=== PATIENT | male | born 1945 | race Caucasian/White ===

== ENCOUNTER → 2019-12-08 11:58 | Outpatient (BNVA) | payer MEDICARE, SELFPAY | PROVIDERS: PCP Family Medicine; Visit Provider Urology | DX: N40.1 Benign prostatic hyperplasia with lower urinary tract symptoms (principal); R33.9 Retention of urine, unspecified; R82.71 Bacteriuria; R33.8 Other retention of urine | CPT/HCPCS: 80053; 81001; 87077; 87086; 87186 ==

== ENCOUNTER → 2020-02-14 10:46 | Outpatient (BNVA) | payer MEDICARE, SELFPAY | PROVIDERS: PCP Family Medicine; Visit Provider Podiatrist Foot & Ankle Surgery | DX: S99.929A Unspecified injury of unspecified foot, initial encounter (principal); X58.XXXA Exposure to other specified factors, initial encounter; M79.671 Pain in right foot; G57.61 Lesion of plantar nerve, right lower limb | CPT/HCPCS: 73630 ==

== ENCOUNTER 2020-02-23 06:41 | Day surgery (SDC) | payer MEDICARE, SELFPAY ==
[2020-02-21 10:25] VITALS: BMI 23.0
[2020-02-23 07:11] VITALS: BP 142/72; PULSE 60; RESP 20; TEMP 37.2; O2SAT 98
[2020-02-23] MEDS: sodium chloride 0.9% 1,000 ML 30 ML IV (07:40)
--- NOTE | 2020-02-23 07:40 | ANES.PREANE2 ---
Pre-Anesthetic Assessment Pre-Anesthetic Assessment: Height/Weight: Height 1.8 m Weight 74.843 kg Temp Pulse Resp BP Pulse Ox 99 F 60 20 H 142/72 98 02/23/20 07:11 02/23/20 07:11 02/23/20 07:11 02/23/20 07:11 02/23/20 07:11 Preop Diagnosis: Bleeding per rectum Proposed Procedure: Operation Date: 02/23/20 08:00 Proposed Procedures p Colonoscopy 77329 K62.5(Not Applicable) - Donaldo Winters MD Familial anesthetic complications: None Last intake: Intake Last Liquid Date 02/22/20 Last Liquid Time 20:00 Last Solid Date 02/22/20 Last Solid Time 12:00 Social: Social History: No alcohol and No tobacco Exam: Pre-Anes Outpt Exam: alert, oriented x 3, clear to auscultation bilaterally and regular rate & rhythm Airway: Cervical ROM: WNL MP: 3 Dentition: False Pulmonary: Pulmonary: None reported CV/HEM: CV/HEM: Arrythmia Comments: Holter monitor shows NSR, sinus sandra, idoventricular rhythm, and 1 9 beat run of V TACH Patient states he can climb up steep hills ok with out SOB, he can climb stairs, walks a lot and does some light weight lifting No chest pains GI: GI: GERD Anesthetic Plan: ASA status: 2 Anesthesia: MAC Risk of > 500 ml blood loss (7ml/kg in children): No PFSH Anesthesia PFSH: Medical History Benign prostatic hyperplasia with urinary retention Hard of hearing Paraphimosis Surgical History Hx of facial fracture repair Hx of hernia repair Family History Father Cancer Mother Cancer Social History Smoking and tobacco status: former smoker Alcohol intake: never Adopted: No Caregiver/support person: No Lives independently: No Household members: spouse Marital status: Current occupational status: retired History of recent travel: No Data Anesthesia Cardiac Studies: Holter Monitor 02/17/20
--- NOTE | 2020-02-23 08:19 | W.PM.OPSFHP ---
Same Day Surgery H&P Indication for Procedure/HPI DATE OF PROCEDURE: February 23, 2020 CHIEF COMPLAINT/INDICATIONFOR SURGICAL PROCEDURE: Blood in stool PREOP DIAGNOSIS: Bleeding per rectum PLANNED PROCEDRUE: Operation Date: 02/23/20 08:00 Proposed Procedures p Colonoscopy 37463 K62.5(Not Applicable) - Donaldo Winters MD This is a pleasant 74 years old gentleman presents to my office with history of blood in stool when he wipes after a bowel movement, he denies any weight loss or colon cancer history yet he does report that he never had a colonoscopy before. Patient was recently diagnosed with UTI and has been on antibiotics and now he is recovering from that. Interim history 02/23/2020 Patient comes today had colon prep for colonoscopy due to history of blood in stool when he wipes it has been persistent. ROS All systems have been reviewed negative except as for the above or per problem list Medications/Allergies* Home Medications Medication Instructions Recorded Confirmed Type aspirin 81 mg tablet,delayed 81 mg PO DAILY 12/08/19 02/23/20 History release Allergies/Adverse Reactions Allergy/AdvReac Type Severity Reaction Status Date / Time cortisone Allergy Unknown Unknown Verified 02/23/20 08:19 Current Medications: Generic Name Dose Route Start Last Admin Trade Name Freq PRN Reason Stop Dose Admin Sodium Chloride 1,000 mls @ 30 mls/hr 02/23/20 07:15 02/23/20 07:40 Sodium Chloride 0.9% IV 30 mls/hr .Q24H JAMES Administration Pertinent History/Comorbid Conditions* Medical History (Updated 01/17/20 @ 13:53 by Donaldo Winters MD) Benign prostatic hyperplasia with urinary retention Hard of hearing Paraphimosis Surgical History (Updated 12/08/19 @ 08:51 by Levi Cheung MD) Hx of facial fracture repair Hx of hernia repair Family History (Updated 12/08/19 @ 08:07 by ASHLEY Sarmiento) Cancer Father Mother Social History Smoking and tobacco status: former smoker Alcohol intake: never Adopted: No Caregiver/support person: No Lives independently: No Household members: spouse Marital status: Current occupational status: retired History of recent travel: No Pertinent Exam Findings alert, oriented x 3, clear to auscultation bilaterally, regular rate & rhythm and procedure specific exam findings (Abdominal examination nontender soft nondistended) Recommendations Surgery/Procedure today (Colonoscopy and informed consent per chart) Coding Level of Care Code Acute Service Delivery Consultant for Kait Dorado
[2020-02-23 08:46] VITALS: BP 91/54; PULSE 52; RESP 18; TEMP 36.3; O2SAT 100
[2020-02-23 08:59] VITALS: BP 115/58; PULSE 43; RESP 18; O2SAT 100
--- NOTE | 2020-02-23 09:47 | ANE.PACU2 ---
Inpatient post-anesthesia follow up: Airway intact: Yes Vital signs: Temperature 97.4 F Pulse Rate 43 Respiratory Rate 18 Blood Pressure 115/58 Pulse Oximetry 100 Oxygen Delivery Me thod Nasal Cannula Oxygen Flow Rate 6 Fraction of Inspir ed Oxygen Hydration adequate: Yes Nausea and vomiting: No Pain level: 1 Mental status: Baseline
== END 2020-02-23 09:25 | disposition home or self-care (01) ==
PROVIDERS: PCP Nurse Practitioner Family; Visit Provider Surgery
PROC: 0DJD8ZZ Inspection of Lower Intestinal Tract, Via Natural or Artificial Opening Endoscopic (ICD-10-PCS; CPT 45378; principal; 2020-02-23 08:00)
DX: K63.89 Other specified diseases of intestine (principal); N40.1 Benign prostatic hyperplasia with lower urinary tract symptoms; R33.8 Other retention of urine; K21.9 Gastro-esophageal reflux disease without esophagitis; Z87.891 Personal history of nicotine dependence
CPT/HCPCS: 12345; 45378; J2704; J7030

== ENCOUNTER 2020-03-15 10:03 | Outpatient (CLI) | payer MEDICARE, SELFPAY ==
--- NOTE | 2020-03-15 10:54 | ECG_ITS ---
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 Interpretive Statements NAME OF STUDY: EXERCISE SESTAMIBI STRESS TEST INDICATION: Chest Pain, EXERCISE DATA: The patient was exercised by Yefri protocol. Baseline heart rate was 48 beats per minute. Baseline blood pressure was 108/55 millimeters of mercury. Target heart rate was 147 beats per minute. Maximum heart rate achieved was 135, which was 91% of the target heart rate. Maximum blood pressure was 197/96 millimeters of mercury. Total exercise time was 6 minutes 3-seconds. Maximum METs achieved was 7.0, maximum VO2 was 24 1. The reason for ending the test was maximum effort achieved. The patient complained of shortness of breath during the stress test, which then resolved at the end of the test. ELECTROCARDIOGRAM: BASELINE: Showed sinus rhythm, normal axis, no significant ST-T changes at the baseline noted. EXERCISE: At the peak exercise level, multiple PVCs noted, no significant ST-T changes suggestive of ischemia noted. RECOVERY: During the recovery period, heart rate dropped appropriately. No significant ST-T changes in the recovery suggestive of ischemia noted. CONCLUSION: 1. Exercise capacity fair. 2. Heart rate response was appropriate. 3. Blood pressure response was hypertensive. 4. Symptoms not suggestive of ischemia. 5. Electrocardiogram portion of the stress test was not suggestive of ischemia. 6. Nuclear scan will be documented separately. Please note that due to underachievement of METs and low exercise capacity specificity and sensitivity of EKG portion of the stress test will be low Electronically Signed On 03-16-2020 18:22:26 CDT by Kellen Dickinson M.D. [id number]
--- NOTE | 2020-03-15 10:55 | NMCV_ITS ---
NM nasima perf SPECT r/s* [id number] Anup Gilman Age: 74 Gender: M : 1945 Exam Date: 03/15/2020 10:55 Ordering Phys: Kellen Dickinson MD ([email or web address]) Technologist: LUIS Ibanez Exam Location: [facility] Indications: Chest pain STRESS TEST Please see separate stress test report in [facility] for full findings IMAGE PROTOCOL Rest/Stress 1 Exercise Day Radiopharmaceutical Dose (mCi) Administration Site Administered by Rest: Tc-99m 11.0 IV LUIS Talbert Sestamibi Stress:Tc-99m 32.5 IV LUIS Ibanez Sestamisarah Rest: 15-Mar-2020 60 Discovery 630 Stress: 15-Mar-2020 30 Discovery 630 Radiopharmaceutical was injected at 85 % maximum heart rate. Images obtained in supine and prone position. SPECT RESULTS Technical Quality: Good Raw Data Analysis: Normal Image Corrections: No attenuation or motion correction applied Summed Stress Score: 1 Summed Rest Score: 4 Summed Difference Score: 0 PERFUSION FINDINGS Medium-sized area of decreased tracer uptake noted in basal to distal inferior and inferoseptal wall on rest images which improved significantly over stress images suggestive of artifact. FUNCTIONAL RESULTS (calculated via Gated SPECT) Stress Image LV EF (%): 61 Stress EDV (mL):109 TID: 1.07 Stress ESV (mL):42 FUNCTIONAL FINDINGS: There is normal left ventricular systolic function. IMPRESSIONS Myocardial perfusion imaging is normal and low probability for obstructive coronary artery disease. EKG segment will be documented separately. Kellen Dickinson MD (Electronically Signed) Final Date: 15 March 2020 17:43 S
[2020-03-15 10:56] VITALS: BMI 22.4
[2020-03-15 13:29] VITALS: BP 136/81; PULSE 64
== END 2020-03-15 10:04 | disposition home or self-care (01) ==
LOC: CDL 10:08
PROVIDERS: PCP Nurse Practitioner Family; Visit Provider Internal Medicine Cardiovascular Disease
DX: R07.9 Chest pain, unspecified (principal)
CPT/HCPCS: 78452; 93017; A9500

== ENCOUNTER → 2020-04-06 13:44 | Outpatient (BNVA) | payer MEDICARE, SELFPAY | PROVIDERS: PCP Nurse Practitioner Family; Referring Provider Nurse Practitioner Family; Visit Provider Nurse Practitioner Family | DX: N40.1 Benign prostatic hyperplasia with lower urinary tract symptoms (principal); R33.8 Other retention of urine; N39.0 Urinary tract infection, site not specified | CPT/HCPCS: 80053; 81001; 87077; 87086; 87186 ==

== ENCOUNTER → 2020-07-12 13:31 | Outpatient (BNVA) | payer MEDICARE, SELFPAY | PROVIDERS: PCP Nurse Practitioner Family; Visit Provider Urology | DX: N39.0 Urinary tract infection, site not specified (principal); N40.1 Benign prostatic hyperplasia with lower urinary tract symptoms; R33.8 Other retention of urine; Z20.822 Contact with and (suspected) exposure to COVID-19 | CPT/HCPCS: 81003; 87077; 87086; 87184; 87635 ==

== ENCOUNTER → 2020-07-18 11:43 | Outpatient (BNVA) | payer MEDICARE, SELFPAY | PROVIDERS: PCP Nurse Practitioner Family; Visit Provider Urology | DX: Z01.812 Encounter for preprocedural laboratory examination (principal); N40.1 Benign prostatic hyperplasia with lower urinary tract symptoms | CPT/HCPCS: 87635 ==

== ENCOUNTER 2020-07-20 16:46 | Observation (INO) | payer MEDICARE, SELFPAY ==
[2020-07-19 11:14] VITALS: BMI 23.0
--- NOTE | 2020-07-19 11:35 | ECG_ITS ---
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 Measurements Intervals [place] Rate: 55 P: 87 ND: 165 QRS: 47 QRSD: 92 T: 52 QT: 407 QTc: 391 Interpretive Statements SINUS BRADYCARDIA No previous ECG available for comparison Electronically Signed On 07-19-2020 18:13:17 QUALITY IMPROVEMENT CONSULTANT by Miki Weir M.D. [id number]
[2020-07-19 11:47] LABS: Basophils % 0.7 %; Eosinophils # 0.1 10^3/uL (0.0-0.8); Hematocrit 39.8 % (42.0-52.0); Hemoglobin 12.8 g/dL (11.7-16.6); Lymphocytes # 1.6 10^3/uL (0.8-4.8); Lymphocytes % 29.8 %; Mean Corpuscular HGB Conc 32.2 g/dL (30.0-36.0); Mean Corpuscular Hemoglobin 30.2 pg (28.0-34.0); Mean Corpuscular Volume 93.9 fL (80-94); Mean Platelet Volume 9.9 fL (7.4-10.4); Monocytes # 0.5 10^3/uL (0.2-0.9); Monocytes % 10.1 %; Neutrophils # 3.07 10^3/uL (1.8-7.7); Neutrophils % 57.2 %; Nucleated Red Blood Cells % 0 %; Platelet Count 201 10^3/cmm (130-400); Red Blood Count 4.24 10^6/uL (4.1-5.3); White Blood Count 5.4 10^3/uL (4.0-10.0)
--- NOTE | 2020-07-19 11:54 | ANES.PREANE2 ---
Pre-Anesthetic Assessment Pre-Anesthetic Assessment: Height/Weight: Height 1.8 m Weight 74.843 kg Preop Diagnosis: Refractory BPH with obstruction/retention Proposed Procedure: Operation Date: 07/20/20 13:10 Proposed Procedures p Cystoscopy 78688 N40.1(Not Applicable) - Levi Cheung MD s Transurethral Resection Of Prostate/vaporization(Not Applicable) - Levi Cheung MD Familial anesthetic complications: None Social: Social History: No alcohol and No tobacco Exam: Pre-Anes Outpt Exam: alert, oriented x 3, clear to auscultation bilaterally and regular rate & rhythm Airway: Cervical ROM: WNL MP: 3 Dentition: Other (no teeth) CV/HEM: CV/HEM: HTN and Palp Comments: no longer having chest pains - I passed my stress test Anesthetic Plan: ASA status: 2 Anesthesia: General Risk of > 500 ml blood loss (7ml/kg in children): No PFSH Anesthesia PFSH: Medical History BPH loc w urin obs/LUTS Hard of hearing Paraphimosis Recurrent UTI Surgical History H/O shoulder surgery right Hx of facial fracture repair Hx of hernia repair Family History Father , at age 64 Cancer colon Mother , at age 87 Cancer with metastasis Social History Smoking and tobacco status: former smoker Alcohol intake: never Adopted: No Caregiver/support person: No Lives independently: No Household members: spouse Marital status: Current occupational status: retired History of recent travel: No Data Anesthesia CBC & Chem 7: 07/19/20 11:25 07/19/20 11:25 Other Labs: Laboratory Results - last 48 hr 07/19/20 11:25 WBC 5.4 RBC 4.24 Hgb 12.8 Hct 39.8 L MCV 93.9 MCH 30.2 MCHC 32.2 RDW 13.0 Plt Count 201 MPV 9.9 Neut % (Auto) 57.2 Lymph % (Auto) 29.8 [place] % (Auto) 10.1 Eos % (Auto) 2.0 Baso % (Auto) 0.7 Neut # (Auto) 3.07 Lymph # (Auto) 1.6 [place] # (Auto) 0.5 Eos # (Auto) 0.1 Baso # (Auto) 0.0 Nucleated RBC % (auto) 0 Nucleated RBCs # 0.0 Cardiac Studies: Holter Monitor 02/17/20
[2020-07-19 11:57] LABS: Anion Gap 11.4 (5-19); Blood Urea Nitrogen 22 mg/dL (8-23); Calcium 9.2 mg/dL (8.5-10.5); Carbon Dioxide 28 mmol/L (22-29); Chloride 100 mmol/L (98-107); Glucose 101 mg/dL (65-115); Osmolality Calculated 283 mOsm/kg (285-295); Potassium 4.4 mmol/L (3.5-5.1); Sodium 135 mmol/L (136-145)
[2020-07-20] VITALS (13 sets, daily range): BP systolic 102–133; BP diastolic 48–71; PULSE 44–70; RESP 12–19; TEMP 36.2–36.9; O2SAT 96–99
[2020-07-20] MEDS: sodium chloride 0.9% 1,000 ML 30 ML IV (11:32)
--- NOTE | 2020-07-20 11:48 | ANES.PAUD2 ---
Pre-Anesthetic Update Pre-Anesthetic Assessment: Date of Surgery/Procedure: 07/20/20 Preop Diagnosis: Bleeding per rectum Proposed Procedure: Operation Date: 07/20/20 13:10 Proposed Procedures p Cystoscopy 01350 N40.1(Not Applicable) - Levi Cheung MD s Transurethral Resection Of Prostate/vaporization(Not Applicable) - Levi Cheung MD Any changes to Pre-Anesthetic Assessment?: No Last Intake: Intake Last Liquid Date 07/19/20 Last Liquid Time 19:00 Last Solid Date 07/19/20 Last Solid Time 19:00 Labs Last 48hrs: Laboratory Results - last 48 hr 07/19/20 07/19/20 11:25 11:25 WBC 5.4 RBC 4.24 Hgb 12.8 Hct 39.8 L MCV 93.9 MCH 30.2 MCHC 32.2 RDW 13.0 Plt Count 201 MPV 9.9 Neut % (Auto) 57.2 Lymph % (Auto) 29.8 [place] % (Auto) 10.1 Eos % (Auto) 2.0 Baso % (Auto) 0.7 Neut # (Auto) 3.07 Lymph # (Auto) 1.6 [place] # (Auto) 0.5 Eos # (Auto) 0.1 Baso # (Auto) 0.0 Nucleated RBC % (a uto) 0 Nucleated RBCs # 0.0 Sodium 135 L Potassium 4.4 Chloride 100 Carbon Dioxide 28 Anion Gap 11.4 BUN 22 Creatinine 0.9 GFR Calculation Not Reportable Glucose 101 Calculated Osmolal ity 283 L Calcium 9.2 Vitals: Temperature 98.5 F 07/20/20 11:28 Temperature Source Temporal Artery S can 07/20/20 11:28 Pulse Rate 49 L 07/20/20 11:28 Respiratory Rate 18 07/20/20 11:28 Blood Pressure 131/67 07/20/20 11:28 Blood Pressure [place] n 88 07/20/20 11:28 Pulse Oximetry 97 07/20/20 11:28 Oxygen Delivery Me thod Nasal Cannula 07/20/20 11:28 Exam: Pre-Anes Outpt Exam: alert, oriented x 3, clear to auscultation bilaterally and regular rate & rhythm Cardiac Studies: Holter Monitor 02/17/20
--- NOTE | 2020-07-20 13:24 | P.HPUD_ITS ---
Surgery/Procedure H&P Update DATE OF PROCEDURE: July 20, 2020 DATE H&P PERFORMED: 07/12/20 H&P UPDATE INFORMATION: I have reviewed H&P completed within last 30 days, I have examined patient prior to procedure, Changes to prior documentation as noted here and H&P is in [facility] EMR on date indicated CHANGES TO PREVIOUS DOCUMENTATION: Culture from the clinic grew Pseudomonas. Placed on ciprofloxacin. PREOP DIAGNOSIS: Bleeding per rectum PLANNED PROCEDURE: Operation Date: 07/20/20 13:10 Proposed Procedures p Cystoscopy 16385 N40.1(Not Applicable) - Levi Cheung MD s Transurethral Resection Of Prostate/vaporization(Not Applicable) - Levi Cheung MD
--- NOTE | 2020-07-20 13:34 | P.OP_ITS ---
Operative Report Date of procedure: July 20, 2020 Pre-op Diagnosis: BPH/obstruction/retention Post-op diagnosis: same Procedure Done: Cystoscopy, transurethral resection/vaporization of the prostate Pathology: Prostate tissue Surgeon: Jonatan Anesthesia: General Urine output: Not measured Complications: None Findings: Trilobar enlargement of the prostate with very large median lobe. Chronic bladder light obstructive changes with severe trabeculation. No other mucosal abnormalities identified. Condition: stable Disposition: PACU Brief History: Mr. Gilman is a very pleasant 74-year-old white male with discovery of urinary retention, chronic obstructive changes noted in the bladder at cystoscopy and a huge median lobe with lateral lobe hypertrophy. Recurrent UTIs were presenting complaint. He was placed on SCIC with failure to void on medical therapy and ultimately elected transurethral resection/vaporization of the prostate with intention of trying to improve his voiding and reduce risk of recurrent UTIs. Procedure: After routine preoperative evaluation examination and obtaining of informed consent he was taken to the operating suite on 07/20/2020 where general anesthesia was administered without difficulty after appropriate timeout was performed, SCDs confirmed to be functioning, preoperative antibiotics administered, beta-mery protocol confirmed. Prepped and draped in the usual sterile fashion in dorsal lithotomy position paying careful attention to avoiding pressure points. 21 Slovak cystoscope with 30 degree lens was introduced into the urethral meatus and advanced into the bladder under videoscopy. The bladder was systematically examined with 30 and 70 degree lenses. Clinic findings were confirmed. No other gross pathology identified. The orifices were identified with some difficulty due to the large intravesically protruding median lobe but the or felt to be easily away from the bladder neck without concerns about intrusion upon the median lobe. The urethra was then calibrated with Seaboard sounds and easily accommodated 30 Slovak. 2% lidocaine jelly was instilled into the urethra and a 25 Slovak continuous- flow resectoscope sheath with visual obturator in place was advanced into the bladder without difficulty. The gyrus bipolar system was utilized for resection with initial resection of the median lobe with the supersect probe. The prostatic mucosa was quite friable and for that reason the initial treatment was utilizing the button probe for fulguration of the surface to allow for better control hemostatically. The median lobe was resected with vaporization current and the button probe approximately 75% and then the remaining posterior aspect was resected with the supersect. Similar pattern of button vaporization followed by resection with the supersect was conducted on both lateral lobes. There is a large amount of posterior tissue that was also resected with the supersect. Resection was taken from the bladder neck then out to the level of the verumont ester and not resecting distally. All chips were evacuated from the bladder. There was still some lateral lobe tissue that could have been resected but at 2 hours of resection it was felt that he was wide open enough to allow adequate space for good voiding and there would be safer to hold at this point. No chips were identified in the bladder. Tolerated procedure well without complications and was awakened in the operating room and returned to the recovery in stable condition. Plans: 1. Admit to [facility] 2. Likely discharge tomorrow if does well with Francisco catheter in place for further healing before voiding trial in the clinic later.
[2020-07-20] MEDS: levofloxacin-dextrose 5 % 500 MG/100 ML PREMIX 100 MG IV (13:44)
[2020-07-20] MEDS: lidocaine 2% Urojet 20 mL TOPICAL (14:15)
--- NOTE | 2020-07-20 16:49 | P.PCN_ITS ---
PACU note PACU note: VSS, Good respiratory effort, report to REGISTERED NURSE CARDIAC Post-Anesthesia Exam: awake
--- NOTE | 2020-07-20 16:49 | PM.PACU ---
PACU note PACU note: VSS, Good respiratory effort, report to RECORD CENTER SPECIALIST Post-Anesthesia Exam: awake
--- NOTE | 2020-07-20 17:56 | PC.NURSE ---
i reported the low pulse to the nurse. 44p
[2020-07-20] MEDS: ciprofloxacin 500 mg Tablet PO (17:58)
[2020-07-20] MEDS: isosorbide mononitrate ER 30 mg Tablet 15 MG PO (17:58)
[2020-07-20] MEDS: tamsulosin 0.4 mg Capsule PO (17:58)
[2020-07-20] MEDS: docusate sodium 100 mg Capsule PO (17:58)
[2020-07-20] MEDS: dextrose 5%-ns + KCl 20 20 MEQ/1,000 ML BAG 30 MEQ IV (18:46)
--- NOTE | 2020-07-20 21:12 | ECG_ITS ---
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 Measurements Intervals [place] Rate: 56 P: 82 LA: 145 QRS: 47 QRSD: 95 T: 60 QT: 427 QTc: 414 Interpretive Statements SINUS BRADYCARDIA WITH SINUS ARRHYTHMIA Compared to ECG 07/19/2020 11:39:42 No significant changes Electronically Signed On 07-21-2020 19:09:53 WELL POINT PUMPING SUPERVISOR by Maegan Boggs M.D. [id number]
--- NOTE | 2020-07-20 21:17 | PC.NURSE ---
While rounding and repositioning patient, patient complained of pain 8/10 in the middle of his shoulder blades and numbness in both arms. Patient denied chest pain or pressure but stated his hands were completely numb and he had never experienced this before. Nurse got a set of vital signs and BP 133/68, HR 70, SPO2 98% on RA, RR 18. Nurse notified charge Nurse ROBERTH Shields. Nurse notified Dr. Cheung via telephone, new orders received for EKG stat and a hospitalist consult. Nurse explained to patient the purpose of the EKG and Patient was stating that pain and numbness was beginning to resolve.
--- NOTE | 2020-07-20 21:19 | CTR_ITS ---
PROCEDURE INFORMATION: Exam: CT Angiography Chest With Contrast Exam date and time: 07/20/2020 9:21 PM Age: 74 years old Clinical indication: Other: Scapular; Other: None; Prior surgery; Surgery type: Turp. Hernia repair. Shoulder. ; Patient HX: C/O pain in between scapula S/P turp procedure earlier today. ; Additional info: Dissection TECHNIQUE: Imaging protocol: Computed tomographic angiography of the chest with intravenous contrast. 3D rendering (Not supervised by radiologist): MIP and/or 3D reconstructed images were created by the technologist. Total images: 890 Radiation optimization: All CT scans at this facility use at least one of these dose optimization techniques: automated exposure control; mA and/or kV adjustment per patient size (includes targeted exams where dose is matched to clinical indication); or iterative reconstruction. Contrast material: OMNI 350; Contrast volume: 95 ml; Contrast route: INTRAVENOUS (IV); COMPARISON: No relevant prior studies available. RADIATION DOSE METRICS: Total DLP (mGy-cm): 1262.94 FINDINGS: Pulmonary arteries: No visible evidence of pulmonary embolism/pulmonary arterial thrombus. Aorta: The thoracic aorta demonstrates minimal fusiform aneurysmal dilatation of the distal aortic arch measuring 39 mm in transverse diameter by 34 mm in the AP diameter. No evidence for intimal flap or dissection. Mild arterial sclerotic disease. Lungs: COPD/chronic bronchitis. No visible active interstitial or alveolar airspace disease. Calcified granulomas of antecedent disease. Minimal dependent atelectasis. Pleural space: Unremarkable. No pneumothorax. No pleural effusion. Heart: No cardiomegaly. No visible pericardial effusion. No visible coronary artery disease. Lymph nodes: No visible active mediastinal or hilar lymphadenopathy. Bones/joints: No visible acute osseous abnormality. No visible osteolytic or osteoblastic destructive process. Age-appropriate degenerative disease of the spine. Mild scoliosis. Soft tissues: Unremarkable. IMPRESSION: 1. No visible evidence of thoracic aortic intimal flap or dissection. 2. 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 3. COPD/chronic bronchitis. 4. Antecedent granulomatous disease. 5. No visible evidence of pulmonary embolism/pulmonary arterial thrombus. PROCEDURE INFORMATION: Exam: CT Angiography Abdomen and Pelvis With Contrast Exam date and time: 07/20/2020 9:21 PM Age: 74 years old Clinical indication: Other: Scapular; Other: None; Prior surgery; Surgery type: Turp. Hernia repair. Shoulder. ; Patient HX: C/O pain in between scapula S/P turp procedure earlier today. ; Additional info: Dissection TECHNIQUE: Imaging protocol: Computed tomographic angiography of the abdomen and pelvis with intravenous contrast material. 3D rendering (Not supervised by radiologist): MIP and/or 3D reconstructed images were created by the technologist. Radiation optimization: All CT scans at this facility use at least one of these dose optimization techniques: automated exposure control; mA and/or kV adjustment per patient size (includes targeted exams where dose is matched to clinical indication); or iterative reconstruction. Contrast material: OMNI 350; Contrast volume: 95 ml; Contrast route: INTRAVENOUS (IV); COMPARISON: No relevant prior studies available. RADIATION DOSE METRICS: Total DLP (mGy-cm): 1262.94 FINDINGS: Aorta: The abdominal aorta is nonaneurysmal. No visible intimal flap or dissection. Celiac trunk and mesenteric arteries: No occlusion or significant stenosis. Renal arteries: No occlusion or significant stenosis. Right iliac arteries: No occlusion or significant stenosis. Left iliac arteries: No occlusion or significant stenosis. Liver: Simple appearing hepatic cysts the largest right hepatic lobe measuring 20 mm. No visible hepatic mass. Gallbladder and bile ducts: Gallbladder free of cholelithiasis. Pancreas: Pancreas unremarkable. No visible pancreatic ductal ectasia. Spleen: Few splenic calcified granulomas of antecedent disease. Adrenals: Adrenal glands unremarkable. Kidneys and ureters: No visible hydronephrosis or perinephric fluid. No visible nephrolithiasis. Stomach and bowel: Diverticulosis coli without visible evidence of acute diverticulitis. Nonobstructive bowel pattern. No visible adynamic or reactive ileus. Appendix: The appendix is visualized and appears noninflamed. Intraperitoneal space: No visible pneumoperitoneum. No visible intraperitoneal ascites. Lymph nodes: Unremarkable. No enlarged lymph nodes. Urinary bladder: Marked diffuse thickening of the urinary bladder wall. Francisco catheter within the urinary bladder. Small amount of free air within the urinary bladder. Unable to differentiate iatrogenic introduction versus active infectious cystitis. Reproductive: Prostate hypertrophy. Bones/joints: Scoliosis. Age-appropriate degenerative disease. Soft tissues: Unremarkable. CT/CT angio chest abdomen pelvis IMPRESSION: 1. The abdominal aorta is nonaneurysmal. No visible intimal flap or dissection. 2. Diverticulosis coli without evidence for acute diverticulitis. 3. Marked diffuse thickening of the urinary bladder wall. Francisco catheter within the urinary bladder. Small amount of free air within the urinary bladder. Unable to differentiate iatrogenic introduction versus active infectious cystitis. 4. Other nonurgent, nonemergent, chronic, and age related findings as detailed in text above. Radiation Dose CTDIVOL = (mGy): DLP = 1262.94~1262.94 (mGy-cm)
--- NOTE | 2020-07-20 21:19 | ECG_ITS ---
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 Measurements Intervals [place] Rate: 59 P: 88 [place]: 153 QRS: 60 QRSD: 90 T: 69 QT: 413 QTc: 411 Interpretive Statements SINUS BRADYCARDIA WITH SINUS ARRHYTHMIA Compared to ECG 07/20/2020 21:37:55 No significant changes Electronically Signed On 07-21-2020 19:09:58 DOUGHNUT ICER MACHINE by Maegan Boggs M.D. [email or web address], [id number]
--- NOTE | 2020-07-20 21:20 | P.CONIM_ITS ---
Providers/Reason For Consult Consulting Physican/Specialty*: Hospitalist service Reason for Consult*: Evaluation for pain in between shoulder blades Attending Physician: Levi Cheung MD Primary Care Provider: Brandy Irene NP History of Present Illness History of Present Illness Anup Gilman is a 74 year old male who is status post TURP, day 0, postoperatively when patient was moved to his room he complained of pain in between his shoulder blades. Hospitalist service is consulted to evaluate this new complaint. Review of previous records revealed that patient had negative myocardial perfusion scan on 03/19. Patient is stating that he was experiencing pain in between his shoulder blades which he is describing as irritation, his discomfort improved with change in position, he did not experience any chest pain, shortness of breath, nausea, vomiting. He is also endorsing numbness of right hand which is new for him, however no strokelike symptoms. No vision changes, weakness in arms or legs. At the time my evaluation patient is symptom-free. He is denying orthopnea, PND. I did not appreciate any strokelike symptoms, I have requested GI cocktail CTA chest abdomen pelvis to rule out dissection, D-dimer and troponin along EKG. Previous EKG revealed sinus bradycardia without any ischemic or infarctive changes, incomplete right bundle branch block pattern noted Review of Systems Const: Reports: fatigue; Denies: fever(s) or body aches Eyes: Denies: change in vision ENMT: Denies: throat pain Card: Denies: chest pain, swelling of feet/ankles, dyspnea on exertion or orthopnea Resp: Denies: dyspnea GI: Denies: abdominal pain : Denies: flank pain Musc: Reports: neck pain and joint pain Skin/Breast: Reports: lesions Neuro: Denies: headache(s), weakness in extremities or lack of coordination Psych: Denies: anxiety Endo: Denies: polyuria Zay/Lymph: Denies: easy bruising All/Imm: Denies: urticaria Meds/Allergies Home Medications and Allergies Home Medications Medication Instructions Recorded Confirmed Last Taken Type tamsulosin 0.4 mg capsule 0.4 mg PO BID #180 cap 12/08/19 07/20/20 07/20/20 Rx aspirin 81 mg tablet,delayed 81 mg PO DAILY #90 tab 02/28/20 07/19/20 07/11/20 Rx release isosorbide mononitrate 30 mg 15 mg PO BID #90 tab 02/28/20 07/20/20 07/20/20 Rx tablet,extended release 24 hr simvastatin 20 mg tablet 20 mg PO DAILY #90 tab 02/28/20 07/20/20 07/19/20 Rx nitroglycerin 0.4 mg sublingual 0.4 mg SUBLINGUAL Q5M PRN #50 tab 03/02/20 07/19/20 Unknown Rx tablet cranberry 500 mg capsule 500 mg PO BID 04/06/20 07/20/20 07/19/20 History methenamine hippurate 1 gram tablet 1 gm PO BID #60 tab 04/06/20 07/19/20 07/18/20 Rx saw palmetto 160 mg capsule 160 mg PO BID 04/06/20 07/20/20 07/19/20 History ascorbic acid (vitamin C) 1,000 mg 1 g PO BID tab 07/12/20 07/19/20 07/18/20 History tablet ciprofloxacin HCl 500 mg tablet 500 mg PO BID #20 tab 07/17/20 07/20/20 07/20/20 Rx metoprolol succinate 12.5 mg PO BEDTIME 07/19/20 07/20/20 07/19/20 17:00 History Allergies Allergy/AdvReac Type Severity Reaction Status Date / Time cortisone Allergy Unknown muscle Verified 07/19/20 11:08 paralysis Current Medications Current Medications Generic Name Dose Route Start Last Admin Trade Name Freq PRN Reason Stop Dose Admin Ciprofloxacin HCl 500 mg 07/20/20 18:00 07/20/20 17:58 Ciprofloxacin 500 Mg Tablet PO 500 mg BID JAMES Administration Protocol Docusate Sodium 100 mg 07/20/20 18:00 07/20/20 17:58 Docusate Sodium 100 Mg Capsule PO 100 mg BID JAMES Administration Potassium Chloride/Dextrose/Sod Cl 20 meq in 1,000 mls @ 30 mls/hr 07/20/20 18:00 07/20/20 18:46 Dextrose 5%-Ns + Kcl 20 IV 30 mls/hr .Q24H JAMES Administration Isosorbide Mononitrate 15 mg 07/20/20 18:00 07/20/20 17:58 Isosorbide Mononitrate Er 30 Mg Tablet PO 15 mg BID JAMES Administration Tamsulosin HCl 0.4 mg 07/20/20 18:00 07/20/20 17:58 Tamsulosin 0.4 Mg Capsule PO 0.4 mg BID JAMES Administration PFSH Acute PFSH: Medical History BPH loc w urin obs/LUTS Hard of hearing Paraphimosis Recurrent UTI Surgical History H/O shoulder surgery right Hx of facial fracture repair Hx of hernia repair Family History Father , at age 64 Cancer colon Mother , at age 87 Cancer with metastasis Social History Smoking and tobacco status: former smoker Alcohol intake: never Adopted: No Caregiver/support person: No Lives independently: No Household members: spouse Marital status: Current occupational status: retired History of recent travel: No Vitals/I&O/Wt Last Vital Signs Temp 97.8 F 07/20/20 20:21 Pulse 48 L 07/20/20 21:20 Resp 18 07/20/20 21:20 BP 118/64 07/20/20 21:20 Pulse Ox 98 07/20/20 21:20 07/20/20 07/20/20 07/20/20 06:59 14:59 22:59 Intake Total 100 / 100 0 / 100 Output Total 1225 / 1225 Balance 100 / 100 -1225 / -1125 Weight last 48 hrs Weight 74.843 kg Weight 74.843 kg Physical Exam Narrative: EXAM NARRATIVE: elderly male currently laying comfortably in his bed saturating well on room air no active chest pain or shortness of breath S1, S2 sinus bradycardia, no active signs of heart failure No acute respiratory distress Saturating well on room air Abdomen soft nontender bowel sound present Lower symmetry no edema gangrene or ulcer or swelling noted Patient has no neurological deficit Appropriate mood GCS 15, EOMI, PERRLA No vascular compromise or difference in radial pulses noted No skin ulcers, Urine bag has some blood-tinged urine Urinary Catheter Management^: 3-way Urethral CBI: Cath Placed During This Visit: yes Reason for Continuing Indwelling Catheter: Perioperative Use in Selected Surgeries Urinary Catheter Date of Insertion: 07/20/20 Urinary Catheter Time of Insertion: 16:22 A&P Assessment and plan (1) Shoulder pain: Patient describes his pain as irritation in between his shoulder blades Rule out aortic dissection and pulmonary embolism Requested D-dimer CTA chest abdomen pelvis EKG showing incomplete right bundle branch block pattern with sinus bradycardia however no ischemic or infarctive changes Troponin not significantly high Patient is symptom-free Review of records revealed that patient had negative perfusion scan last year as well No previous history of LA CHF or coronary disease I do 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
[2020-07-20] MEDS: iohexol 350 mg/mL 100 mL Btl IV (21:52)
[2020-07-20 21:58] LABS: D Dimer 0.97 ug/mIFEU (0-0.59)
[2020-07-20 22:02] LABS: Troponin(5th) Baseline 13 ng/L (0-15)
[2020-07-20] MEDS: lidocaine 2% viscous 15 ML, aluminum-mag hydrox-simethicon 30 ML, sucralfate oral liq 1 GM PO (23:12)
--- NOTE | 2020-07-20 23:16 | PC.NURSE ---
Metoprolol 12.5 PO not given due to bradycardia, Dr. Aj notified.
--- NOTE | 2020-07-20 23:19 | ECG_ITS ---
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 Measurements Intervals [place] Rate: 58 P: 85 SD: 155 QRS: 52 QRSD: 94 T: 65 QT: 419 QTc: 414 Interpretive Statements SINUS BRADYCARDIA Compared to ECG 07/20/2020 22:56:19 Sinus arrhythmia no longer present Electronically Signed On 07-21-2020 19:14:03 CONCRETE STONE FINISHING SUPERVISOR by Maegan Boggs M.D. [id number]
[2020-07-20 23:43] LABS: Troponin 5 2HR 12.96 ng/L (0-15)
[2020-07-20 23:51] LABS: Troponin 5 2HR Delta -0.04 ABS# (0-10)
[2020-07-21] VITALS (7 sets, daily range): BP systolic 93–108; BP diastolic 50–61; PULSE 48–67; RESP 17–18; TEMP 36.6–37.1; O2SAT 94–97
[2020-07-21 02:38] LABS: Basophils % 0.4 %; Eosinophils % 0.2 %; Hematocrit 37.1 % (42.0-52.0); Hemoglobin 11.8 g/dL (11.7-16.6); Lymphocytes # 1.3 10^3/uL (0.8-4.8); Lymphocytes % 15.5 %; Mean Corpuscular HGB Conc 31.8 g/dL (30.0-36.0); Mean Corpuscular Hemoglobin 30.2 pg (28.0-34.0); Mean Corpuscular Volume 94.9 fL (80-94); Mean Platelet Volume 9.8 fL (7.4-10.4); Monocytes # 0.6 10^3/uL (0.2-0.9); Monocytes % 7.4 %; Neutrophils # 6.47 10^3/uL (1.8-7.7); Nucleated Red Blood Cells % 0 %; Platelet Count 185 10^3/cmm (130-400); Red Blood Count 3.91 10^6/uL (4.1-5.3); Red Cell Distribution Width 13.2 % (12.1-15.1); White Blood Count 8.5 10^3/uL (4.0-10.0)
--- NOTE | 2020-07-21 03:19 | ECG_ITS ---
[facility] Test Date: 2020-07-21 Pat Name: Anup Gilman Department: Room: 264 Gender: Male Senior Electronics Technician: : 1945 Requested By: Kellen Aj Order Number: [id number] Celestina MD: Maegan Boggs M.D. Measurements Intervals [place] Rate: 64 P: 150 AR: 156 QRS: 164 QRSD: 91 T: 150 QT: 399 QTc: 412 Interpretive Statements SINUS RHYTHM WITH OCCASIONAL SUPRAVENTRICULAR PREMATURE COMPLEXES ARM LEADS REVERSED [INVERTED P AND QRS IN I] Compared to ECG 07/20/2020 22:57:02 Sinus bradycardia no longer present Baseline artifacts. Defective EKG. Needs to repeat Electronically Signed On 07-21-2020 19:15:14 COOK HOUSE LABORER by Maegan Boggs M.D. [id number]
[2020-07-21 03:23] LABS: Anion Gap 12.1 (5-19); Blood Urea Nitrogen 18 mg/dL (8-23); Calcium 8.5 mg/dL (8.5-10.5); Carbon Dioxide 26 mmol/L (22-29); Chloride 106 mmol/L (98-107); Glucose 126 mg/dL (65-115); Osmolality Calculated 293 mOsm/kg (285-295); Potassium 4.1 mmol/L (3.5-5.1); Sodium 140 mmol/L (136-145)
--- NOTE | 2020-07-21 06:47 | PM.PN ---
Subjective Subjective: Interval history: Urology follow-up: Postoperative day #1 TURP. Had some unusual back pain last night in the upper thoracic area with complaints of numbness of his upper extremities. Hospitalist service was consulted and Dr. Aj evaluated. Thankfully the work-up was negative for anything significant. This morning he is feeling much better. Urine is improving as far as clarity. Still requiring CBI at this point but a much slower rate. No fever or chills. Is complaining of some constipation symptoms. Reviewed operative findings with him. Have recommended maintaining catheter at discharge because of the size of the prostate and the CBI requirements at this point. Recommendations: 1. Continue trying to taper CBI 2. Laxative 3. Reevaluate this afternoon for possible discharge. 4. If CBI is still required will change to inpatient status and observe overnight again with expectation of discharge tomorrow. Vitals/I&O/Wt Last Vital Signs Temp 98.1 F 07/21/20 04:10 Pulse 59 L 07/21/20 04:10 Resp 18 07/21/20 04:10 BP 108/57 07/21/20 04:10 Pulse Ox 95 07/21/20 04:10 07/20/20 07/20/20 07/21/20 14:59 22:59 06:59 Intake Total 100 / 100 0 / 100 240 / 340 Output Total 2600 / 2600 Balance 100 / 100 -2600 / -2500 240 / -2260 Weight last 48 hrs Weight 165 lb Weight 165 lb Physical Exam Const: COMMON NORMALS: no acute distress, alert and well nourished GENERAL APPEARANCE: well kempt and well developed ORIENTATION/CONSCIOUSNESS: not confused HENMT: COMMON NORMALS: normocephalic and atraumatic HEAD & SCALP: normocephalic and atraumatic Eye: COMMON NORMALS: no scleral icterus Neck/C-Spine: COMMON NORMALS: full ROM Resp: COMMON NORMALS: normal respiratory effort EFFORT & INSPECTION: No labored and No Actively coughing Neuro: SENSORIUM/ORIENTATION: Yes alert Psych: COMMON NORMALS: mental status grossly normal APPEARANCE: Yes grossly normal and Yes well kempt ATTITUDE: Yes calm and Yes engaged Skin: COMMON NORMALS: no rashes or lesions noted and no jaundice GENERAL SKIN EXAM: no rashes or lesions noted Urinary Catheter Management^: 3-way Urethral CBI: Cath Placed During This Visit: yes Reason for Continuing Indwelling Catheter: Perioperative Use in Selected Surgeries Urinary Catheter Date of Insertion: 07/20/20 Urinary Catheter Time of Insertion: 16:22 Data : 07/21/20 02:14 07/21/20 02:14 A&P Assessment and plan (1) BPH loc w urin obs/LUTS: Status post TURP. Requiring CBI still but lower rate. We will continue to try to taper off. Status: Acute (2) Recurrent UTI: Status: Acute (3) Chest pain: Atypical posterior chest pain yesterday. Work-up negative for pathologic concerns. Appreciate hospitalist service/Dr. Aj for his assistance and evaluation. Status: Acute Qualifiers: Chest pain type: chest pain due to myocardial ischemia Ischemic chest pain type: stable angina pectoris Qualified Code(s): I20.8 - Other forms of angina pectoris Attestations Medical Necessity Statement*: Still requiring CBI. Coding Level of Care Code Acute Command And Control Systems Integrator for [facility] Fwd Diagnoses BPH loc w urin obs/LUTS N40.1 Recurrent UTI N39.0 Chest pain I20.8 Chest pain type: chest pain due to myocardial ischemia Ischemic chest pain type: stable angina pectoris
--- NOTE | 2020-07-21 07:56 | PC.NURSE ---
shift summaryreturn Upon rounding at 1999 this nurse noted that patient's acosta was full, 2800ml was drained from the acosta, urine was dark red in color. This nurse turned up the continuous irrigation solution, Nurse asked patient if he was having any pain, Patient denied any bladder pain, bladder did not feel distended upon palpation. Patient stated he had pain cutting right through my shoulder blades this nurse asked if he had any chest pain or pressure, Pt denied chest pain but stated his arms and hands felt numb. This nurse got a set of vitals, applied telemetry, and called Dr. Cheung who ordered a EKG stat and a Hospitalist consult. Dr. Aj came to assess the patient and had put orders in for lab work and CT. Troponin baseline was 13 and Jean Marie gave verbal orders to nurse to d/c the 6 hour troponin if the 120 min troponin was not elevated. Patient's pain and numbness resolved after repositioning. Patient CBI improved throughout shift to be a pink in color. Dr. Cheung rounded at 0630 and spoke with this nurse for a verbal shift report. total CBI irrigant intake was 7000 mls, total acosta output was 9400, total urine output calculated to be 2400 mls. 2400 mls charted in I&O flowsheet.
[2020-07-21] MEDS: bisacodyl 5 mg Tablet PO (07:58)
[2020-07-21] MEDS: atorvastatin 40 mg Tablet 20 MG PO (07:58)
[2020-07-21] MEDS: tamsulosin 0.4 mg Capsule PO (07:59)
[2020-07-21] MEDS: ciprofloxacin 500 mg Tablet PO (08:00)
[2020-07-21] MEDS: isosorbide mononitrate ER 30 mg Tablet 15 MG PO (08:00)
[2020-07-21] MEDS: docusate sodium 100 mg Capsule PO (08:00)
--- NOTE | 2020-07-21 11:56 | PC.NURSE ---
Patient vitals per student nurse 100/65, HR 64, R 18, 95% on RA. Patient voiced no needs and denied pain/discomfort. CBI running slow drip. clear light to mid pink urine observed.
--- NOTE | 2020-07-21 14:20 | PC.CHAP ---
Pastoral Care Encounter/Spiritual Assessment Type of Contact [] Declined poured concrete wall technician visit [] Patient/Family/Request visit [] Outpatient visit [] Follow-up visit [] Physician referral [] Code/Alert [xx] Routine visit [] Staff referral [] Actively dying [] Patient sleeping [] Family support [] [] Out of room [] Palliative care [] [] Receiving care in room [] Pre-surgical visit [] Trauma [] Long length of stay [] ICU visit [] Other: Relational/Emotional Strength [xx] Patient feels connected with others/family/visitors/staff [] Distress [] Loneliness/isolation [] Abandonment Spirituality of Patient [xx] Person of Bernadette [xx] Attends Yazidi of their Bernadette [xx] Believes in Prayer [xx] Reads Bible or Anabaptism materials [] There are Spiritual issues to be addressed Finance Specialist Interventions [xx] Prayer [xx] Active listening [xx] Non-anxious presence [] Spiritual/emotional support [] Crisis/trauma care [] Spiritual counseling [] Bereavement support [] Provided bereavement packet [] Provided Bible/devotional materials [] Provided toy/stuffed animal, coloring book to patient or family member [] Provided Communion [] Anointing/[place] [] Salvation [xx] Completed spiritual assessment [] Other: Impact on Illness or Injury [] Angry [] Fearful [] Anxious [] Often cries [] Exhaustion [] Unable to work [] Unable to attend judaism [] Unable to walk/stand [] Unable to read [] Unable to drive [] Unable to eat/drink [] Unable to sleep [] Unable to be with family [] Patient intubated [] Other: Summary Patient's greatest concern that he will be discharged while is is at work in [place] and transportation will be hard to arrange. Patient complained that hospital bed is very uncomfortable and he cannot rest. Time spent with patient 10 minutes
--- NOTE | 2020-07-21 15:07 | P.DS_ITS ---
Discharge Providers Date of Admission: 07/20/20 16:46 Date of Discharge: July 21, 2020 Attending Provider at Admission: Levi Cheung MD Attending Provider at Discharge: Levi Cheung MD Primary Care Provider: Brandy Irene NP Diagnoses at Discharge Discharge Diagnosis (1) BPH loc w urin obs/LUTS: Status: Acute Permanent problem details: Progressive obstruction with elevated PVR, recurrent UTIs, self catheterization for retention. Treated with TURP June 2020 (2) Recurrent UTI: Status: Acute Permanent problem details: June 2020: Pseudomonas UTI. Treated with ciprofloxacin (3) Chest pain: Status: Acute Qualifiers: Chest pain type: chest pain due to myocardial ischemia Ischemic chest pain type: stable angina pectoris Qualified Code(s): I20.8 - Other forms of angina pectoris Reason for Visit Reason for Visit: cystocopy Hospital Course Hospital Course Admitted on the day of the procedure (TURP) which went well. Huge prostate gland. The bulk of the tissue was vaporized. Some sampling was performed with resection. Postoperatively from a urologic perspective he did very well. He was maintained on low flow continuous bladder irrigation on the night of surgery and it was weaned off on postoperative day #1 with clearing of his urine. He was discharged with Francisco catheter in place for voiding trial on 07/25/2020. On the night of his surgery he had some mid thoracic back pain. Hospitalist was consulted. Work-up ultimately showed no obvious significant pathology. No evidence of PE, vascular pathology, or pneumonia. Pain resolved spontaneously and did not recur. Physical Exam Const: COMMON NORMALS: no acute distress, alert and well nourished GENERAL APPEARANCE: well kempt and well developed ORIENTATION/CONSCIOUSNESS: not confused HENMT: COMMON NORMALS: normocephalic and atraumatic HEAD & SCALP: normocephalic and atraumatic Eye: COMMON NORMALS: conjunctivae normal and no scleral icterus CONJUNCTIVA: Yes conjunctivae normal Neck/C-Spine: GENERAL: Yes normal visual inspection Resp: COMMON NORMALS: normal respiratory effort EFFORT & INSPECTION: No labored and No Actively coughing Extremity: COMMON NORMALS: no clubbing, cyanosis or edema Neuro: COMMON NORMALS: no focal motor deficits SENSORIUM/ORIENTATION: Yes alert Psych: COMMON NORMALS: mental status grossly normal APPEARANCE: Yes grossly normal and Yes well kempt ATTITUDE: Yes calm and Yes engaged Skin: COMMON NORMALS: no rashes or lesions noted and no jaundice GENERAL SKIN EXAM: no rashes or lesions noted Urinary Catheter Management^: 3-way Urethral CBI: Cath Placed During This Visit: yes Reason for Continuing Indwelling Catheter: Perioperative Use in Selected Surgeries Urinary Catheter Date of Insertion: 07/20/20 Urinary Catheter Time of Insertion: 16:22 Discharge Data Data Completed and Pending: Completed Studies During Hospitalization Category Date Time Status CT angio chest ab domen pelvis Stat Cat Scan 07/20/20 21:19 Completed Pending at discharge Category Date Time Status Pathology: Surgic al [PTH] Routine Pth 07/20/20 16:47 Received Labs from last 24 hours 07/21/20 07/21/20 07/20/20 02:14 02:14 23:05 WBC 8.5 RBC 3.91 L Hgb 11.8 Hct 37.1 L MCV 94.9 H MCH 30.2 MCHC 31.8 RDW 13.2 Plt Count 185 MPV 9.8 Neut % (Auto) 76.0 Lymph % (Auto) 15.5 Davison % (Auto) 7.4 Eos % (Auto) 0.2 Baso % (Auto) 0.4 Neut # (Auto) 6.47 Lymph # (Auto) 1.3 Davison # (Auto) 0.6 Eos # (Auto) 0.0 Baso # (Auto) 0.0 Nucleated RBC % (a uto) 0 Nucleated RBCs # 0.0 D-Dimer Sodium 140 Potassium 4.1 Chloride 106 Carbon Dioxide 26 Anion Gap 12.1 BUN 18 Creatinine 0.8 GFR Calculation Not Reportable Glucose 126 H Calculated Osmolal ity 293 Calcium 8.5 Troponin T Baselin e Troponin T 120 Min tyler 12.96 Delta Troponin T -0.04 L 07/20/20 07/20/20 21:29 21:29 WBC RBC Hgb Hct MCV MCH MCHC RDW Plt Count MPV Neut % (Auto) Lymph % (Auto) Davison % (Auto) Eos % (Auto) Baso % (Auto) Neut # (Auto) Lymph # (Auto) Davison # (Auto) Eos # (Auto) Baso # (Auto) Nucleated RBC % (a uto) Nucleated RBCs # D-Dimer 0.97 H Sodium Potassium Chloride Carbon Dioxide Anion Gap BUN Creatinine GFR Calculation Glucose Calculated Osmolal ity Calcium Troponin T Baselin e 13 Troponin T 120 Min tyler Delta Troponin T Vitals: Last Vital Signs Temp 97.9 F 07/21/20 12:14 Pulse 67 07/21/20 12:14 Resp 17 07/21/20 12:14 BP 93/55 07/21/20 12:14 Pulse Ox 95 07/21/20 12:14 Discharge Plan Discharge Patient Disposition: Home Condition: Stable Prescriptions: Continued tamsulosin 0.4 mg capsule 0.4 mg PO BID Qty: 180 RF: 3 isosorbide mononitrate 30 mg tablet extended release 24 hr 15 mg PO BID Qty: 90 RF: 3 simvastatin 20 mg tablet 20 mg PO DAILY Qty: 90 RF: 3 saw palmetto 160 mg capsule 160 mg PO BID RF: 0 cranberry 500 mg capsule 500 mg PO BID RF: 0 ascorbic acid (vitamin C) 1,000 mg tablet 1 g PO BID RF: 0 nitroglycerin [Nitrostat] 0.4 mg tablet, sublingual 0.4 mg SUBLINGUAL Q5M PRN (Reason: chest pain) Qty: 50 RF: 1 ciprofloxacin HCl 500 mg tablet 500 mg PO BID Qty: 20 RF: 1 metoprolol succinate 25 mg tablet extended release 24 hr 12.5 mg PO BEDTIME RF: 0 Held aspirin [Adult Aspirin Regimen] 81 mg tablet,delayed release (DR/EC) 81 mg PO DAILY Qty: 90 RF: 3 Hold Instructions: Resume on 07/28/20. methenamine hippurate 1 gram tablet 1 gm PO BID Qty: 60 RF: 6 Hold Instructions: hold until completion of CIPROFLOXIN, then restart Discharge Orders: Discharge Order (Routine); Ordered 07/21/20 Ordered By: Levi Cheung Referrals: Levi Cheung MD [Physician] - 07/25/20 (Voiding trial with S CIC instruction) Discharge Diet: Usual diet Discharge Activity: Limit activity as instructed Patient Instructions: Francisco Catheter Care, Transurethral Prostatectomy (DC), Urinary Leg Bag (GEN) Activity Restrictions/Additional Instructions: 1. The catheter must remain in until I see you in my office on Friday the for a voiding trial. 2. Avoid lifting anything >10 pounds for 3 weeks. 3. Keep your bowels soft so that you do not have to strain 4. Call if you have any concerns or questions prior to return to clinic. The hospital erecting crane operator can reach me at any time. 5. Drink a lot of fluid to keep your urine clear. Discharge Attestations Time Spent in Discharge Care*: greater than 30 min Quality Metrics Clinical Quality Measures During this hospital stay, did patient experience: None Coding Level of Care Code Acute Allergy And Immunology Specialist for [facility] Diagnoses BPH loc w urin obs/LUTS N40.1 Recurrent UTI N39.0 Chest pain I20.8 Chest pain type: chest pain due to myocardial ischemia Ischemic chest pain type: stable angina pectoris
--- NOTE | 2020-07-21 15:49 | PC.NURSE ---
when this nurse started shift this am there was approximately 2600 in the continuous irrigation, at 7 am patient had 650mL out in the acosta. CBI was slowed down, urine was light pink in color. At 0915 he had 400 out and at 12pm he had 1200mL in urine output. CBI was turned off at 1100, urine is still light pink in color. no clots visualized.
--- NOTE | 2020-07-21 16:50 | PC.NURSE ---
patient was educated on switching from urinary leg bag to night bag and back. information was provided and he was also educated on catheter care and when to seek medical attention.
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
== END 2020-07-21 17:22 | disposition home or self-care (01) ==
LOC: MEDSURG 16:46
PROVIDERS: Internal Medicine; Admitting Provider Urology; PCP Nurse Practitioner Family; Visit Provider Urology
PROC: 0TJB8ZZ Inspection of Bladder, Via Natural or Artificial Opening Endoscopic (ICD-10-PCS; CPT 52000; principal; 2020-07-20 13:10)
PROC: 0VT08ZZ Resection of Prostate, Via Natural or Artificial Opening Endoscopic (ICD-10-PCS; CPT 52601; 2020-07-20 13:10)
DX: N40.1 Benign prostatic hyperplasia with lower urinary tract symptoms (principal); N13.8 Other obstructive and reflux uropathy; R33.8 Other retention of urine; I20.8 Other forms of angina pectoris; N39.0 Urinary tract infection, site not specified; M25.512 Pain in left shoulder; M25.511 Pain in right shoulder; I10 Essential (primary) hypertension; Z87.891 Personal history of nicotine dependence; Z79.82 Long term (current) use of aspirin
CPT/HCPCS: 52601; 12345; 36415; 71275; 74174; 80048; 84484; 85025; 85378; 88305; 93005; 96365; 96366; G0378; J1956; J2405; J2704; J3010; J3490; J7030; Q9967

== ENCOUNTER → 2020-09-05 11:17 | Outpatient (BNVA) | payer MEDICARE, SELFPAY | PROVIDERS: PCP Nurse Practitioner Family; Visit Provider Urology | DX: N40.1 Benign prostatic hyperplasia with lower urinary tract symptoms (principal); N39.0 Urinary tract infection, site not specified | CPT/HCPCS: 81003; 87077; 87086; 87184 ==

== ENCOUNTER → 2020-10-10 11:20 | Outpatient (BNVA) | payer MEDICARE, SELFPAY | PROVIDERS: PCP Nurse Practitioner Family; Visit Provider Urology | DX: N40.1 Benign prostatic hyperplasia with lower urinary tract symptoms (principal); N39.0 Urinary tract infection, site not specified | CPT/HCPCS: 81003; 87077; 87086; 87184 ==

== ENCOUNTER → 2021-07-19 10:31 | Outpatient (BNVA) | payer MEDICARE, SELFPAY | PROVIDERS: PCP Nurse Practitioner Family; Visit Provider Urology | DX: N40.1 Benign prostatic hyperplasia with lower urinary tract symptoms (principal); N39.0 Urinary tract infection, site not specified | CPT/HCPCS: 81003; 87077; 87086; 87184 ==

== ENCOUNTER 2022-04-29 10:37 | Outpatient (CLI) | payer MEDICARE, SELFPAY ==
--- NOTE | 2022-04-29 10:48 | USCV_ITS ---
Anup Gilman Age: 76 Gender: M : 1945 Exam Date: 04/29/2022 10:57 Ordering Phys: Brandy Irene NP Technologist: CT Exam Location: [facility] [place] Indication: screening HISTORY: Diameter (cm) AP x Transverse x Length Velocity (cm/s) Waveform Prox Aorta: 2.72 x 2.35 x 52.50 Triphasic Mid Aorta: 2.21 x 1.88 x 50.80 Triphasic Distal Aorta: 1.91 x x 65.40 Triphasic Right Iliac Prox: 1.30 x 1.27 x 76.20 Triphasic Left Iliac Prox: 1.09 x 1.23 x 96.10 Triphasic Stent Prox Landing x x Aneurysmal Sac Max x x Lt Lat Sac Dim Rt Lat Sac Dim Stent Dist Landing x x Right Iliac Stent x x Left Iliac Stent x x Right Renal Art Left Renal Art FINDINGS: normal us CONCLUSIONS No evidence of abdominal aortic or bilateral iliac aneurysm. Brant Ron MD (Electronically Signed) Final Date: 29 April 2022 17:29 S
== END 2022-04-29 10:38 | disposition home or self-care (01) ==
LOC: RAD 10:38
PROVIDERS: PCP Nurse Practitioner Family; Visit Provider Nurse Practitioner Family
DX: Z13.6 Encounter for screening for cardiovascular disorders (principal); Z87.891 Personal history of nicotine dependence
CPT/HCPCS: 76706

== ENCOUNTER → 2022-07-09 11:27 | Outpatient (BNVA) | payer MEDICARE, SELFPAY | PROVIDERS: PCP Nurse Practitioner Family; Visit Provider Internal Medicine Cardiovascular Disease | DX: I25.10 Atherosclerotic heart disease of native coronary artery without angina pectoris (principal); I10 Essential (primary) hypertension; E78.5 Hyperlipidemia, unspecified; E66.01 Morbid (severe) obesity due to excess calories; Z68.41 Body mass index [BMI] 40.0-44.9, adult; G47.33 Obstructive sleep apnea (adult) (pediatric) | CPT/HCPCS: 93005; 99214 ==

== ENCOUNTER → 2022-10-08 13:18 | Outpatient (BNVA) | payer MEDICARE, SELFPAY | PROVIDERS: PCP Nurse Practitioner Family; Visit Provider Internal Medicine Cardiovascular Disease | DX: I20.8 Other forms of angina pectoris (principal); E78.5 Hyperlipidemia, unspecified; I10 Essential (primary) hypertension; Z87.891 Personal history of nicotine dependence | CPT/HCPCS: 99214 ==

== ENCOUNTER → 2023-04-23 14:24 | Outpatient (BNVA) | payer MEDICARE, SELFPAY | PROVIDERS: PCP Nurse Practitioner Family; Visit Provider Nurse Practitioner Family | DX: I49.9 Cardiac arrhythmia, unspecified (principal); I10 Essential (primary) hypertension; Z87.891 Personal history of nicotine dependence | CPT/HCPCS: 93005; 99214 ==

== ENCOUNTER → 2023-10-09 09:46 | Outpatient (BNVA) | payer MEDICARE, SELFPAY | PROVIDERS: PCP Nurse Practitioner Family; Visit Provider Internal Medicine Cardiovascular Disease | DX: I20.89 Other forms of angina pectoris (principal); I71.22 Aneurysm of the aortic arch, without rupture; I10 Essential (primary) hypertension; E78.5 Hyperlipidemia, unspecified; Z87.891 Personal history of nicotine dependence | CPT/HCPCS: 99214 ==

== ENCOUNTER 2023-11-04 09:40 | Outpatient (CLI) | payer MEDICARE, SELFPAY ==
[2023-11-04] MEDS: iohexol 350 mg/mL 500 mL Btl (per mL) IV (10:21)
--- NOTE | 2023-11-04 10:30 | CT_ITS ---
WS: [id number] CTA THORACIC AORTA WITH AND WITHOUT CONTRAST HISTORY: aortic arch aneurysm TECHNIQUE: CT imaging of the thorax is performed with and without contrast. After noncontrast imaging is performed, CT angiogram is performed during injection of Omnipaque 350; 100 mL IV.. Sagittal and coronal reconstructions, sagittal and coronal MIP imaging is submitted. All CT scans at [facility] use at least one of these dose optimization techniques: automated exposure control; mA and/or k V adjustment per patient size (includes targeted exams where dose is matched to clinical indication); or iterative reconstruction. DLP: 504.16 mGy.cm COMPARISON: 07/20/2020 Mild plaque in the aortic arch. The ascending aorta is normal caliber measuring 3.2 cm. The descendin g aorta at the level of the josias is 2.6 cm. There is very mild ectasia and dilatation of the distal aortic arch, distal to the subclavian artery origin. The maximum diameter is 3.4 cm. No obvious incr ease in size since the prior study. The measurement is slightly less taking into consideration differ ence in technique. Normal aortic root and sinotubular junction. No dissection. Mild cardiac enlargeme nt. No pericardial or pleural effusions. No pulmonary mass or pneumonia. Benign granuloma LEFT lower lobe. No adenopathy. 1.9 cm hepatic cyst RIGHT lobe. There are a few additional smaller areas of decreased attenuation whi ch are too small to characterize. Small hiatal hernia. No adrenal mass. No destructive bone lesions. CT/CT angio chest [id number] IMPRESSION: 1. 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 Maximum diameter of 3.4 cm is unchanged since 07/20/2020. 2. Mild atherosclerosis aorta. 3. No pulmonary mass or pneumonia. 4. Hepatic cyst.
== END 2023-11-04 09:41 | disposition home or self-care (01) ==
LOC: RAD 09:40
PROVIDERS: PCP Nurse Practitioner Family; Visit Provider Internal Medicine Cardiovascular Disease
DX: I71.22 Aneurysm of the aortic arch, without rupture (principal); I70.0 Atherosclerosis of aorta; K76.89 Other specified diseases of liver
CPT/HCPCS: 71275; Q9967

== ENCOUNTER → 2024-04-07 09:00 | Outpatient (BNVA) | payer MEDICARE, SELFPAY | PROVIDERS: PCP Nurse Practitioner Family; Visit Provider Nurse Practitioner Family | DX: I20.89 Other forms of angina pectoris (principal); I10 Essential (primary) hypertension; Z87.891 Personal history of nicotine dependence; R00.1 Bradycardia, unspecified; I71.22 Aneurysm of the aortic arch, without rupture | CPT/HCPCS: 99214 ==

== ENCOUNTER 2024-05-04 10:06 | Outpatient (CLI) | payer MEDICARE, SELFPAY ==
--- NOTE | 2024-05-04 | ECG_ITS ---
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 Interpretive Statements LEXISCAN SESTAMIBI STRESS TEST Procedure: At the baseline, the blood pressure was 156/73 mmHg with a heart rate of 52 bpm. The electrocardiogram showed normal sinus rhythm, normal axis with normal ST and T's. The Lexiscan was infused over a period of 20 seconds. A total of 0.4 mg of Lexiscan was infused. The stress phase was continued for a total of 5 minutes. Heart rate was at the end of stress phase was 60 bpm and a blood pressure of 132/78mmHg. The EKG at the peak infusion revealed normal sinus rhythm with no significant ST-T wave changes. Sestamibi was injected 20 seconds after the Lexiscan infusion. Blood pressure at the end of recovery phase was 128/72 mmHg with a heart rate of 59 bpm. Conclusion: 1. Normal EKG response to Lexiscan infusion 2. No Lexiscan induced chest pain or cardiac arrhythmia. 3. Normal blood pressure and heart rate response. 4. Sestamibi/sestamibi perfusion scan pending; see separate report. Electronically Signed On 06-02-2024 19:43:11 SEARCH MARKETING COORDINATOR by Miki Weir M.D. [email or web address]
[2024-05-04 10:37] VITALS: BMI 23.3
--- NOTE | 2024-05-04 10:44 | NMCV_ITS ---
NM nasima perf SPECT r/s* [id number] Anup Gilman Age: 78 Gender: M : 1945 Exam Date: 05/04/2024 10:44 Ordering Phys: Della Waller Technologist: LUIS Alan Exam Location: [facility] Indications: cp STRESS TEST Please see separate stress test report in [facility] for full findings IMAGE PROTOCOL Rest/Stress 1 Lexiscan Day Radiopharmaceutical Dose (mCi) Administration Site Administered by Rest: Tc-99m 9.3 IV LUIS Alan Sestamibi Stress:Tc-99m 29.1 IV LUIS Ibanez Sestamibi Rest: 04-May-2024 60 Discovery 630 Stress: 04-May-2024 30 Discovery 630 0.4mg Lexiscan. Images obtained in supine and prone position. SPECT RESULTS Technical Quality: Good Raw Data Analysis: Breast attenuation Image Corrections: No attenuation or motion correction applied Summed Stress Score: 6 Summed Rest Score: 0 Summed Difference Score: 6 PERFUSION FINDINGS Large area of fixed perfusion defect noted in basal to distal inferior and inferoseptal wall on both stress and rest images suggestive of old myocardial infarction versus scarring. FUNCTIONAL RESULTS (calculated via Gated SPECT) Stress Image LV EF (%): 53 Stress EDV (mL):102 TID: 0.97 Stress ESV (mL):48 FUNCTIONAL FINDINGS: There appeared to be basal to distal inferior wall akinesis. Left ventricular ejection fraction appeared to be mildly reduced. IMPRESSIONS Large area of old myocardial infarction versus scarring noted in basal distal inferior inferoseptal wall without edu-infarct ischemia. EKG segment will be documented separately. Kellen Dickinson MD (Electronically Signed) Final Date: 04 May 2024 20:02 S
[2024-05-04] MEDS: regadenoson 0.4 Mg/5 ml Syringe IVP (11:48)
[2024-05-04 12:02] VITALS: BP 133/84; PULSE 60
== END 2024-05-04 10:07 | disposition home or self-care (01) ==
PROVIDERS: PCP Nurse Practitioner Family; Visit Provider Nurse Practitioner Family
DX: I20.89 Other forms of angina pectoris (principal); R94.39 Abnormal result of other cardiovascular function study; R06.02 Shortness of breath
CPT/HCPCS: 36415; 78452; 93017; 96374; A9500; J2785

== ENCOUNTER → 2024-05-18 09:39 | Outpatient (BNVA) | payer MEDICARE, SELFPAY | PROVIDERS: PCP Nurse Practitioner Family; Visit Provider Nurse Practitioner Family | DX: I47.20 Ventricular tachycardia, unspecified (principal); R00.1 Bradycardia, unspecified; I10 Essential (primary) hypertension; Z87.891 Personal history of nicotine dependence; I20.89 Other forms of angina pectoris | CPT/HCPCS: 99214 ==

== ENCOUNTER 2024-05-25 05:36 | Outpatient (CLI) | payer MEDICARE, SELFPAY ==
[2024-05-25] VITALS (17 sets, daily range): BP systolic 91–155; BP diastolic 51–75; PULSE 39–51; RESP 9–17; TEMP 36.5; O2SAT 90–99; BMI 23.3
--- NOTE | 2024-05-25 06:00 | XACV_ITS ---
Exam Room: 2 Ht: 180 cm Wt: 76 kg BSA: 1.95 m2 Gender: Male : 1945 Any Known Allergies: Other Exam Priority: Routine Procedure(s): Procedure Description: Diagnostic procedure Procedure Description: Left Heart Catheterization Procedure Description: Coronary Angiography Ambrose LOCKHART; Diagnostic Cath Status: Elective Diagnostic Findings * Left main is a short medium caliber vessel with no significant stenotic lesions. It bifurcates to the left anterior descending artery and circumflex artery. * The left and descending artery is a medium caliber vessel which appears to wraparound the LV apex minimally. No significant obstructive lesions were noted in this vessel. It gives off multiple small diagonal branches with no significant lesions. * The left circumflex artery is a small to medium caliber nondominant vessel which was found to have mild diffuse intimal irregularities proximally. It gives of a high obtuse marginal branch which also was of small caliber with the mild to moderate diffuse disease proximally. Conclusions 1. 78-year-old white male with history of hypertension, dyslipidemia presented with the complaints of palpitations and recurrent episodes of chest pains. He had a Myocardial perfusion imaging which revealed a large area of fixed defect with no significant reversible defects. Cardiac arrested and was recommended to further evaluate his coronary status and decide on further management. 2. Patient was left heart catheterization with left and right coronary angiogram today. The findings are as follows. 3. 1. Short left main with no significant lesions. #2 no severe lesions in the left and descending artery. 3. Nondominant left circumflex artery with mild intimal irregularities in the proximal segment #4. Medium to large caliber dominant right coronary artery with no significant lesions. #5. LVEDP of 20 mmHg. Diagnostic RX Recommendation: medical therapy and/or counseling LV EDP: 20 mmHg Left Ventriculography Findings: * LV gram was not performed because of the limitations on the dye usage. The LVEDP was 20 mmHg. Pressures Phase:Rest AO : 98 / 49 ( 67 ) @ 7:33:00 AM 130 / 69 ( 95 ) @ 7:44:00 AM LV : 116 / 1 / 20 @ 7:44:00 AM Clinical Evaluation EBL: 5mL-10mL Procedural Details Procedure Consent Obtained. Admit Source: Out Patient. Pre-Procedure Time Out. Identified patient by full name and date of as verbalized by the patient/guarantor. Does the consent match the physician's order: Yes. Accurate & Complete Informed Consent: Yes. Inpatient/Outpatient History & Physical on Chart: Yes. If H&P is completed, is and addenduem needed: No; If yes, is the addendum complete: N/A. Visualize and Verify Site with Patient/Guarantor: N/A. Relevant Radiology Images available: Yes. The risks, benefits, and alternatives of sedation and/or procedure were discussed by physician. The patient agrees to continue. Procedure started. [facility] Clinical Fraility Score: 3: Managing Well. Screening Unit Registered Nurse Indications: Worsening Angina. Chest Pain Symptom Assessment: Typical Angina Symptoms. Correct patient, site and procedure confirmed by cath team. Current diagnosis: Chest Pain, Abnormal stress test. PERRLA. Strong, equal hand silicator bilaterally. Lungs clear x 5 lobes. IV Site on Arrival: 20 gauge in the left anticubital. IV Fluids: 0.9% NaCl at KVO. 0 mL infused prior to medical lab director. Pre Procedural Pulses: bilateral radial was 3+. Pre Procedural Pulses: bilateral dorsalis pedis was 3+. Pre Procedural Pulses: bilateral posterior tibial was 2+. Oxygen started at 2liters/min via nasal canula. right radial was prepped with chloroprep then draped in the usual sterile fashion. right groin was prepped with chloroprep then draped in the usual sterile fashion. Physician notified. Baseline sample Acquired. HR: 67 BPM. Physician arrived. Physician scrubbed in. Immediate Pre-Procedure Time Out. Correct Patient: Yes; Correct Procedure: Yes; Correct Site: Yes; Correct Patient Position: Yes; Correct Supplies: Yes; Dried Flammable Prep: Yes; Blood Products Available: No;. Lidocaine 1% infiltrated to the right radial. Arterial access obtained. A 5 monegasque Haresh catheter in over wire. Multiple views taken of left coronary artery. Catheter redirected to the RCA. Catheter removed over the exchange wire. A 5 monegasque JR4 catheter in over wire. Multiple views taken of right coronary artery. EDP Sample taken: LV 116/1,20; HR: 39 BPM; SpO2: 98%. Pullback taken: LV Off; AO Off; Mean: , Peak to Peak: , SEP: ; HR: 45 BPM; SpO2: 98%. Catheter removed over the exchange wire. Physician scrubbed out. Physician review of cine films. A TR Band was successful obtaining hemostatsis at the Right Radial artery insertion site. Post Procedure: Pulses reassessed and unchanged. PERRLA. Strong, equal hand silicator bilaterally. No VTE prophylaxis required. Medication's Wasted: Lidocaine 1% = 18 mL. Medication's Wasted: Nitro = 49.9 mg. Medication's Wasted: Verapamil = 5 mg. Medication's Wasted: Heparin = 1000 unit. Total IV fluids: 250 mL. Post-op diagnosis: Non-obstructive CAD. Complications: None. Estimated blood loss: 5mL-10mL. Responsiveness - Normal response to verbal stimuli; alert and oriented, PERRLA. Airway - Unaffected, no intervention required; spontaneous ventilation. Circulation: W/N/L, pulses unchanged. Nausea/Vomiting: No. Procedure completed. Patient transferred by wheelchair to CPRU. Vital chart was stopped. Access Site Site: Right Radial artery Sheath Size: 6 Fr Hemostasis Method: TR Band Hemostasis Success: Successful Procedure Medications Start: 7:17 AM Stop: 7:17 AM Medication: Versed Amount: 1 mg Route: I.V. Start: 7:17 AM Stop: 7:17 AM Medication: Fentanyl Amount: 50 mcg Route: I.V. Start: 7:19 AM Stop: 7:19 AM Medication: Versed Amount: 1 mg Route: I.V. Start: 7:27 AM Stop: 7:27 AM Medication: 0.9% Saline Amount: 250 ml Route: I.V. bolus Start: 7:31 AM Stop: 7:31 AM Medication: Nitrogylcerin Amount: 100 mcg Route: I.A. Start: 7:32 AM Stop: 7:32 AM Medication: Heparin Amount: 5000 units Route: I.V. Start: 7:45 AM Stop: 7:45 AM Medication: Fentanyl Amount: 50 mcg Route: I.V. I, the attending physician, have reviewed and verified all procedure medications. Yes, all medications given per verbal order History/Risk Factors Hypertension: Yes Dyslipidemia: Yes Peripheral Arterial Disease (PAD): No Myocardial Infarction (IN): No Obesity: No Renal Disease: No Prior Interventions PCI: No CABG: No Valve Surgery: No Report Signatures Finalized by Dr Maegan Boggs MD [facility] on 05/25/2024 04:57 PM
[2024-05-25] MEDS: aspirin 325 mg Tablet PO (06:15)
[2024-05-25] MEDS: diphenhydrAMINE 50 mg Capsule PO (06:15)
[2024-05-25 06:20] LABS: Basophils % 0.6 %; Eosinophils # 0.3 10^3/uL (0.0-0.8); Eosinophils % 3.6 %; Hematocrit 42.4 % (37-53); Lymphocytes # 1.8 10^3/uL (0.8-4.8); Lymphocytes % 26.6 %; Mean Corpuscular HGB Conc 32.8 g/dL (30-55); Mean Corpuscular Hemoglobin 30.9 pg (27-33); Mean Corpuscular Volume 94.2 fl (82-101); Mean Platelet Volume 9.8 fL (7.4-10.4); Monocytes # 0.8 10^3/uL (0.2-0.9); Neutrophils # 3.99 10^3/uL (1.8-7.7); Neutrophils % 58.1 %; Nucleated Red Blood Cells % 0 %; Platelet Count 194 10^3/cmm (157-399); Red Cell Distribution Width 12.8 % (12.1-15.1); White Blood Count 6.88 10^3/uL (3.29-11.43)
[2024-05-25 06:43] LABS: Anion Gap 12.4 (5-19); Blood Urea Nitrogen 18 mg/dL (8-23); Calcium 9.2 mg/dL (8.5-10.5); Carbon Dioxide 27 mmol/L (22-29); Chloride 102 mmol/L (98-107); Creatinine Clr Calc Pharmacy 60.0409; Glucose 101 mg/dL (65-115); Osmolality Calculated 286 mOsm/kg (285-295); Potassium 4.4 mmol/L (3.5-5.1); Sodium 137 mmol/L (136-145)
--- NOTE | 2024-05-25 07:10 | W.PM.OPSUD ---
Surgery/Procedure H&P Update DATE OF PROCEDURE: May 25, 2024 DATE H&P PERFORMED: 07/12/20 H&P UPDATE INFORMATION: I have reviewed H&P completed within last 30 days, I have examined patient prior to procedure and No changes to prior documentation PREOP DIAGNOSIS: possible ASHD PRIMARY INDICATION FOR PROCEDURE: Chest pain/abnormal myocardial bulging with/multiple risk factors for atherosclerotic heart disease PLANNED PROCEDURE: Operation Date: 05/25/24 07:00 Proposed Procedures p Cardiac Catheterization - C w/wo LV & Coros(Left) - aMegan Boggs MD PATIENT REASSESSED PRIOR TO SEDATION, WITH NO CHANGE NOTED: Yes PHYSICAL EXAM: alert, oriented x 3, clear to auscultation bilaterally, regular rate & rhythm and operative site marked AIRWAY EVAL/ANESTHESIA PLAN: normal airway, see other exam findings, ASA III, Monitored Anesthesia, Local Anesthesia, Risks, benefits & alternatives of sedation and/or procedure discussed and Patient agrees to continue as planned
--- NOTE | 2024-05-25 09:16 | PC.NURSE ---
TR Band Air Released 1ml air released from TR band at this time per protocol. No s/s of bleeding noted, site C/D/I. Pt verbalized understanding of limb precautions for TR band.
--- NOTE | 2024-05-25 10:24 | PC.NURSE ---
TRB Air Removed TRB air removal completed at this time per protocol, 1-2 ml air removed every 5-10 minutes over 1 hour. No s/s of hematoma noted. Small bruise noted to medial arm distal to TR band, no swelling noted. Radial pulse bounding. Will monitor.
--- NOTE | 2024-05-25 11:55 | PC.NURSE ---
Pt Discharged Pt discharge instructions given, verbalized understanding. Taken to lobby and discharged home via private vehicle. Puncture site to R radial no s/s of hematoma, dressing c/d/i.
== END 2024-05-25 05:37 | disposition home or self-care (01) ==
PROVIDERS: PCP Nurse Practitioner Family; Visit Provider Internal Medicine Cardiovascular Disease
DX: I25.10 Atherosclerotic heart disease of native coronary artery without angina pectoris (principal); I10 Essential (primary) hypertension; E78.5 Hyperlipidemia, unspecified; N40.1 Benign prostatic hyperplasia with lower urinary tract symptoms; N13.8 Other obstructive and reflux uropathy
CPT/HCPCS: 36415; 80048; 85025; 93458; 96365; 96374; 99152; C1769; C1887; C1894; J1644; J2250; J3010; J3490; J7030; Q0163; Q9967

== ENCOUNTER → 2024-06-01 13:51 | Outpatient (BNVA) | payer MEDICARE, SELFPAY | PROVIDERS: PCP Nurse Practitioner Family; Visit Provider Nurse Practitioner Family | DX: R00.1 Bradycardia, unspecified (principal) | CPT/HCPCS: 99214 ==

== ENCOUNTER 2024-06-15 06:43 | Outpatient (CLI) | payer MEDICARE, SELFPAY ==
--- NOTE | 2024-06-15 07:00 | USCV_ITS ---
Anup Gilman Age: 78 Gender: M : 1945 Exam Date: 06/15/2024 07:05 Ordering Phys: Della Waller Technologist: Exam Location: [facility] [place] Indication: sandra cardia BP: 120 / 80 HR: 54 Rhythm: Sinus Technical Quality: Adequate MEASUREMENTS (Male / Female) Normal Values 2D ECHO LV Diastolic Diameter PLAX 5.0 cm 4.2 - 5.9 / 3.9 - 5.3 cm IVS Diastolic Thickness 1.1 cm 0.6 - 1.0 / 0.6 - 0.9 cm IVS Systolic Thickness 1.8 cm LVPW Diastolic Thickness 1.1 cm 0.6 - 1.0 / 0.6 - 0.9 cm LVPW Systolic Thickness 2.0 cm LVOT Diameter 2.1 cm LV Ejection Fraction 2D Teich 69.8 % LV Ejection Fraction MOD 4C 68.5 % LV Ejection Fraction MOD 2C 68.4 % LV Ejection Fraction 2C AL 68.9 % LA Diameter 3.5 cm RA Systolic Volume 4C AL 42.5 ml RA Systolic Volume 4C MOD 40.8 ml Aorta at Sinotubular Diameter 3.5 cm IVC Diameter 1.5 cm M-MODE LA Ao Ratio MM 1.5 AV Cusp Separation MM 1.9 cm DOPPLER AV Peak Velocity 114.0 cm/s LVOT Peak Velocity 85.0 cm/s AV Area Cont Eq vti 3.1 cm squared AV Area Cont Eq pk 2.5 cm squared MV Peak Velocity 68.0 cm/s MV Area PHT 1.5 cm squared Mitral E to A Ratio 1.0 TV Peak Velocity 303.5 cm/s TR Peak Velocity 332.0 cm/s TR Peak Gradient 44.1 mmHg TV Peak E Velocity 93.0 cm/s PV Peak Velocity 107.0 cm/s FINDINGS Left Ventricle Normal left ventricular size and systolic function, EF 65%. .No regional wall motion abnormalities. Right Ventricle The right ventricle is normal in size and function. Right Atrium Mildly increased right atrial size. Left Atrium Mildly increased left atrial size. Mitral Valve Thickened mitral valve. Mild-moderate mitral valve regurgitation. Aortic Valve Mild aortic valve regurgitation. Tricuspid Valve Mild tricuspid valve regurgitation Pulmonic Valve No gross abnormalities noted Pericardium No pericardial effusion. Aorta Normal aortic annulus size. IVC Normal inferior vena cava. CONCLUSIONS No similar previous studies are available for comparisonNormal left ventricular size and systolic function, EF 65%. .No regional wall motion abnormalities. Mildly increased right atrial size. Mildly increased left atrial size. Thickened mitral valve. Mild-moderate mitral valve regurgitation. Mild aortic valve regurgitation. Mild tricuspid valve regurgitation . There is no pericardial effusion. There are no intracardiac masses. No similar previous studies are available for comparison Dr Maegan Boggs MD FAC (Electronically Signed) Final Date: 24 June 2024 16:01 S
== END 2024-06-15 06:44 | disposition home or self-care (01) ==
PROVIDERS: PCP Nurse Practitioner Family; Visit Provider Nurse Practitioner Family
DX: I34.0 Nonrheumatic mitral (valve) insufficiency (principal); I20.89 Other forms of angina pectoris; R07.9 Chest pain, unspecified; R00.1 Bradycardia, unspecified
CPT/HCPCS: 93306; 99214

== ENCOUNTER → 2024-07-07 13:21 | Outpatient (BNVA) | payer MEDICARE, OTHER, SELFPAY | PROVIDERS: PCP Nurse Practitioner Family; Visit Provider Internal Medicine Cardiovascular Disease | DX: I47.20 Ventricular tachycardia, unspecified (principal); I10 Essential (primary) hypertension; I71.22 Aneurysm of the aortic arch, without rupture; E78.5 Hyperlipidemia, unspecified; Z87.891 Personal history of nicotine dependence | CPT/HCPCS: 99214 ==

== ENCOUNTER → 2024-11-02 14:21 | Outpatient (BNVA) | payer MEDICARE, SELFPAY | PROVIDERS: PCP Nurse Practitioner Family; Visit Provider Internal Medicine Cardiovascular Disease | DX: R07.9 Chest pain, unspecified (principal) | CPT/HCPCS: 93005 ==

== ENCOUNTER 2025-02-01 13:12 | Outpatient (CLI) | payer MEDICARE, OTHER, SELFPAY ==
--- NOTE | 2025-02-01 13:21 | XRR_ITS ---
PROCEDURE INFORMATION: Exam: XR Lumbosacral Spine Exam date and time: 02/01/2025 1:29 PM Age: 79 years old Clinical indication: Low back pain TECHNIQUE: Imaging protocol: Radiologic exam of the lumbosacral spine. Views: 2 or 3 views. COMPARISON: No relevant prior studies available. FINDINGS: Bones/joints: Preserved lumbar vertebral body heights. Multilevel degenerative disc changes and spondylosis. Facet degenerative changes of the lower levels. Marked dextro convex curvature of the lumbar spine apex at the L2 level. Soft tissues: Unremarkable. XR/XR lumbar spine 2-3V* [id number] IMPRESSION: As above.
== END 2025-02-01 13:13 | disposition home or self-care (01) ==
PROVIDERS: PCP Nurse Practitioner Family; Visit Provider Nurse Practitioner Family
DX: M54.50 Low back pain, unspecified (principal)
CPT/HCPCS: 72100

== ENCOUNTER 2025-04-01 11:37 | Outpatient (CLI) | payer MEDICARE, OTHER, SELFPAY ==
--- NOTE | 2025-04-01 11:45 | USCV_ITS ---
Anup Gilman Age: 79 Gender: M : 1945 Exam Date: 04/01/2025 12:09 Ordering Phys: Brandy Irene NP Technologist: ANA [place] [facility] [place]: RIGHT LEG SWELLING AFTER INJURY HISTORY: Lower extremity swelling-RIGHT PROCEDURES: Venous duplex imaging was performed in only the right lower extremity. The following venous structures were evaluated: common femoral vein, profunda vein, proximal portion of the greater saphenous vein, superficial femoral vein, and the popliteal vein. In addition, the posterior tibial and peroneal trunk were evaluated. FINDINGS: Normal 2-D Doppler and augmentation and compressibility throughout the lower extremity venous structures. Additional imaging through the proximal calf veins also reveals no thrombus. Limited evaluation of the greater saphenous vein is patent with no thrombus. CONCLUSIONS No DVT right lower extremity. Dr. Betzaida Edmond DO (Electronically Signed) Final Date: 01 April 2025 13:03 S
== END 2025-04-01 11:38 | disposition home or self-care (01) ==
PROVIDERS: PCP Nurse Practitioner Family; Visit Provider Nurse Practitioner Family
DX: M79.661 Pain in right lower leg (principal); M25.571 Pain in right ankle and joints of right foot; S99.911A Unspecified injury of right ankle, initial encounter; W19.XXXA Unspecified fall, initial encounter
CPT/HCPCS: 93971

== ENCOUNTER 2025-04-06 14:49 | Outpatient (CLI) | payer MEDICARE, OTHER, SELFPAY ==
--- NOTE | 2025-04-06 14:59 | XR_ITS ---
WS: [id number] Left wrist, 3 views, 04/06/2025 Clinical Data: PAIN IN LEFT WRIST Comparison: None. Findings: No fractures or dislocations are seen. The carpal bones are intact. There is no soft tissue swelling. The distal radius and ulna are not remarkable. There is osteoarthritis of the left CMC joint. XR/XR wrist LT min 3V* [id number] Impression: Left CMC joint osteoarthritis.
--- NOTE | 2025-04-06 15:00 | XR_ITS ---
WS: [id number] Right ankle, 3 views, 04/06/2025 Clinical Data: PAIN IN RIGHT ANKLE AND JOINTS OF RIGHT FOOT Comparison: None. Findings: No fractures or dislocations are seen. The ankle mortise is normal. The talus and calcaneus are unremarkable. No soft tissue swelling over the medial or lateral malleolus is seen. XR/XR ankle RT min 3V* [id number] Impression: Negative right ankle.
== END 2025-04-06 14:50 | disposition home or self-care (01) ==
LOC: RAD 14:53
PROVIDERS: PCP Nurse Practitioner Family; Visit Provider Nurse Practitioner Family
DX: M25.532 Pain in left wrist (principal); M18.12 Unilateral primary osteoarthritis of first carpometacarpal joint, left hand; S99.911A Unspecified injury of right ankle, initial encounter; M25.571 Pain in right ankle and joints of right foot; S99.921A Unspecified injury of right foot, initial encounter; W19.XXXA Unspecified fall, initial encounter
CPT/HCPCS: 73110; 73610

== ENCOUNTER → 2025-05-31 10:58 | Outpatient (BNVA) | payer MEDICARE, OTHER, SELFPAY | PROVIDERS: PCP Nurse Practitioner Family; Visit Provider Nurse Practitioner Family | DX: I25.10 Atherosclerotic heart disease of native coronary artery without angina pectoris (principal); I71.22 Aneurysm of the aortic arch, without rupture; I10 Essential (primary) hypertension; E78.5 Hyperlipidemia, unspecified | CPT/HCPCS: 99214 ==